=== PATIENT | female | born 2000 | race Two or more races ===

== ENCOUNTER 2023-10-10 08:04 | Emergency (ER) | payer OTHER, SELFPAY ==
[2023-10-10 08:06] VITALS: BP 96/77
[2023-10-10 09:00] VITALS: BMI 22.5
--- NOTE | 2023-10-10 09:00 | ED.GENMED ---
History of Present Illness
General
Chief Complaint: Chest Problem
Source: patient
Exam Limitations: none
Time Seen by Provider: 10/10/23 08:59
Nursing documentation reviewed up to this point in time: agreed with
Travel History
Have you had any contact with someone who has COVID-19?: No
Do you have any symptoms of coronavirus? Fever > 100 degrees, chills, cough, shortness of breath, sore throat, loss of taste or smell, muscle aches, or headache?: Yes
Symptoms:: cough, fever
History of Present Illness
History of Present Illness:
The patient is a 23-year-old female who reports 2 days of dry cough, nasal congestion, body aches, headache, fever, and sore throat. Patient denies sick contacts. Patient reports she experienced chest tightness when she woke up this morning which
prompted her to come to the ED. She describes tightness throughout her chest with coughing. She denies leg swelling and leg pain. She denies a history of PE and DVT. She denies recent long travel history and denies smoking and control
pill. Patient reports she took Tylenol at 630 this morning. She denies nausea and vomiting. She is able to keep down fluids.
Past History
Past History
ED Past Medical History: Other (Cholelithiasis noted on abdominal ultrasound January 2019) and Other (Gastritis)
ED Past Surgical History: None
Patient has exhibited threatening behavior?: No
Social History
Tobacco: Non-smoker
Alcohol: None
Drug: None
Personal:
Living: with family
Employment: Student
Family History
Family History: Other (Noncontributory)
Review of Systems
Review of Systems
Allergies reviewed?: Yes
All Other Systems: ROS reviewed and negative except as documented in HPI and ROS
Constitutional: Reports fever and fatigue
EENT: Reports sore throat and runny nose
Respiratory: Reports cough
Cardiac: Reports chest pain
ABD/GI: Reports anorexia
: Reports no symptoms
Musculoskeletal: Reports muscle stiffness
Skin: Reports no symptoms
Neurological: Reports headache
Endocrine: Reports no symptoms
Hematologic/Lymphatic: Reports no symptoms
Psychiatric: Reports no symptoms
Phy Exam
Physical Exam
Physical Exam:
Physical Exam
General: Patient appears slightly flushed but is nontoxic and conversational. Fully awake and alert
Neck: supple. no meningeal signs. normal posterior pharynx. No cervical lymphadenopathy. Did not visualize tonsils. No postpharyngeal erythema or exudate
Heart: s1/s2 regular rate and rhythm, no murmur. equal radial pulses.
Lungs: no acute respiratory distress. clear bilaterally
Abdomen: normal bowel sounds. not tender. no CVAT
Neuro: alert and oriented. no focal neurological deficits
Skin: no rash
Psychiatric: well kept. interactive and cooperative
Extremities: no edema. no calf tenderness. negative homans. good distal pulses
Scores
PE Wells Score
Symptoms of DVT: No
No alternative diagnosis better explains the illness: No
Tachycardia with pulse > 100: Yes
Immobilization (>=3 days) or surgery within previous 4 weeks: No
Prior history of DVT or pulmonary embolism: No
Presence of hemoptysis: No
Presence of malignancy: No
Pulmonary Embolism Risk Score: 1.5
Probability of PE: Pt is low risk
Course
Orders/Labs/Results
Orders:
Orders
10/10/23 08:09
EKG [Electrocardiogram (*1)] Urgent
Reason for Study: Chest Pain
10/10/23 08:10
EKG- Treatment ONCE
10/10/23 09:11
Ibuprofen [Motrin] 600 mg PO NOW STA
10/10/23 09:18
COVID-19 Antigen Urgent
Source: Nasal Swab
Influenza A+B Rapid Molecular Urgent
BLANK Source: Nasal Swab
Specimen Description:
10/10/23 10:06
Oseltamivir Phosphate [Tamiflu] 75 mg PO NOW STA
Vital Signs
Initial and Last Documented VS:
Initial Vital Signs
Temp Pulse Resp BP Pulse Ox
99.9 F 111 16 96/77 96
10/10/23 08:06 10/10/23 08:06 10/10/23 08:06 10/10/23 08:06 10/10/23 08:06
Last Documented Vital Signs
Temp Pulse Resp BP Pulse Ox
99.9 F 93 20 95/64 96
10/10/23 08:06 10/10/23 10:00 10/10/23 10:00 10/10/23 10:00 10/10/23 10:00
MDM/Problems Addressed
Differential Diagnosis Includes:
Musculoskeletal chest pain, pleuritis, pneumonia, PE
MDM/Problems Addressed:
Patient presents with acute fever, cough, sore throat, body aches and chest pain
*Pulse Oximetry
Patient hypoxic: no
*EKG
Interpreted by ED Provider?: Yes
Interpretation: normal
Comparison EKG: no comparison EKG present
Rate: normal
Rhythm: sinus
[place]: normal axis
Interval: normal interval
QRS Pattern: normal QRS
Ischemia: no ischemia
*Line Tender Interpretation
Rate: tachycardiac
Interpretation: abnormal
Rhythm: sinus
*Critical Care Note
Total Time (30-74mins, 75-104mins- exclusive of procedures): Not Applicable
Data Reviewed
Review of Other/Old Records Reveals: Operative Reports (Surgical report reviewed from 01/2023 when patient underwent a laparoscopic cholecystectomy)
Source: patient
Patient Management
Social determinants of health affecting care: Living situation and Strong social support
Escalation/DeEscalation of care consider admission/obs:
Patient appears nontoxic and is able to self hydrate. There is no sign of meningitis. Lungs sound clear and there is no sign of pneumonia. It is doubtful patient has a PE given that she is low risk and her chest pain is much more likely to be
pleuritis secondary to viral illness. Patient encouraged to take Tylenol Motrin to control fever and pain. She is comfortable with this plan. Pulse ox normal.
ED Attending Note
-
Portions of this chart may have been created with voice recognition software.� Occasional wrong word or��sound alike� substitutions may have occurred due to the inherent limitations of voice recognition software.
Discharge Plan
Departure
Patient Disposition: Home (Routine Discharge)
Date of Disposition: 10/10/23
Time of Disposition: 10:03
Patient with high blood pressure during this ER visit?: No
Condition: Good
Covid-19: Negative COVID-19
Discharge Problem:
Influenza B
Instructions: Flu, Adult ED
Prescriptions:
New
oseltamivir [Tamiflu] 75 mg capsule
75 mg PO BID Qty: 9 0RF
No Action
ibuprofen 600 mg Tablet
600 mg PO PRN PRN (Reason: pain)
Hold Instructions: Resume on 02/22/23.
oxycodone 5 mg tablet
5 - 10 mg PO Q4HPRN PRN (Reason: moderate to severe pain) Qty: 20 0RF
Referrals:
NONE,* [Family Provider] -
Activity Restrictions/Additional Instructions:
Take 1000 mg of Tylenol every 4-6 hours to control the fever and pain. In addition to the Tylenol, you can also take 600 mg of Advil every 6-8 hours with food for fever and pain. Drink lots of fluids to keep yourself well-hydrated. Wear a mask
around others in your home and do good handwashing for at least 5 days.
Interventions
Interventions:
*Risk Screen - Suicide Last Done: 10/10/23 08:06
*General Assessment Last Done: 10/10/23 08:06
*Neglect/Abuse Screening Last Done: 10/10/23 08:06
ED- Cardiac Assessment Last Done: 10/10/23 09:01
ED- Pulmonary Assessment Last Done: 10/10/23 09:01
[2023-10-10 09:09] VITALS: BP 105/72
[2023-10-10] MEDS: MOTRIN 600 MG PO (09:19)
[2023-10-10 09:43] LABS: COVID-19 Antigen Negative (Negative)
[2023-10-10 10:00] VITALS: BP 95/64
[2023-10-10] MEDS: TAMIFLU 75 MG PO (10:15)
== END 2023-10-10 10:19 | disposition home or self-care (01) ==
LOC: EMR 08:04
PROVIDERS: EMERGENCY PHYSICIAN Emergency Medicine
DX: J10.1 Influenza due to other identified influenza virus with other respiratory manifestations (principal); R07.9 Chest pain, unspecified; Z11.52 Encounter for screening for COVID-19
CPT/HCPCS: 99284; 87502; 87811; 93005